=== PATIENT | male | born 1985 | race Caucasian/White ===

== ENCOUNTER 2016-11-29 21:17 | Emergency (ER) | payer OTHER ==
[~2016-11-29] VITALS: Ht 180.3 cm; Wt 135.0 kg
[2016-11-29 21:21] VITALS: BP 179/102; PULSE 109; RESP 22; TEMP 98.3; O2SAT 95
== END 2016-11-29 23:03 | disposition left against medical advice (07) ==
LOC: NEPD 21:17
DX: T14.90XA Injury, unspecified, initial encounter (principal); W19.XXXA Unspecified fall, initial encounter
CPT/HCPCS: 99281